=== PATIENT | male | born 1945 | race Caucasian/White ===

== ENCOUNTER 2020-12-26 07:05 | Outpatient (CLI) | payer MEDICARE ==
[2020-12-26] MEDS ORDERED: SODIUM CHLORIDE 0.9% 1000ML 1,000 ML IV ONE (07:27)
[2020-12-26 07:30] VITALS: BP 166/84
[2020-12-26] MEDS ORDERED: SODIUM CHLORIDE 0.9% 1000ML 1,000 ML IV SCH (09:00)
[2020-12-26] MEDS ORDERED: IOHEXOL 350 MG/ML 100ML INFUS..BTL IV ONE (12:05)
[2020-12-26 12:35] VITALS: BP 170/92
[2020-12-26 12:50] VITALS: BP 168/90
== END 2020-12-26 12:50 | disposition home or self-care (01) ==
LOC: DAH 07:05
PROVIDERS: ATTEND Internal Medicine Cardiovascular Disease
DX: I71.2 Thoracic aortic aneurysm, without rupture (principal); I71.4 Abdominal aortic aneurysm, without rupture; J43.2 Centrilobular emphysema; R06.02 Shortness of breath
CPT/HCPCS: 71275; 74175; 96360; 96361; A4215; A4216; A4221; A4222; A4223 ×3; A4663; J7030; Q9967

== ENCOUNTER → 2021-01-05 | Outpatient (CLI) | payer MEDICARE | END | disposition home or self-care (01) | LOC: SHCH 17:16 | PROVIDERS: ATTEND Internal Medicine Cardiovascular Disease | DX: I08.8 Other rheumatic multiple valve diseases (principal); I31.3 Pericardial effusion (noninflammatory); I27.20 Pulmonary hypertension, unspecified; R01.1 Cardiac murmur, unspecified | CPT/HCPCS: 93306; 93356 ==